=== PATIENT | female | born 1980 | race Caucasian/White ===

== ENCOUNTER 2017-10-08 12:04 | Emergency (ER) | payer MEDICAID, OTHER ==
[2017-10-08 12:19] VITALS: TEMP 97.9; O2SAT 100
[2017-10-08] MEDS ORDERED: Sodium Chloride 0.9% 1,000 ML IV ONE (12:41)
--- NOTE | 2017-10-08 12:45 | C.PDOC ---
History Of Present Illness 37 year old female presents to ED for evaluation of left sided abdominal pain and subjective fever for the last 4 days. She states pain started in left upper abdomen and is now located in left lower abdomen. Denies any associated fever, nausea, vomiting, diarrhea, constipation, dysuria, hematuria, urinary frequency , back pain, headache, or dizziness. Time Seen by Provider: 10/08/17 12:34 Chief Complaint (Nursing): Abdominal Pain History Per: Patient History/Exam Limitations: no limitations Onset/Duration Of Symptoms: Days (4) Current Symptoms Are (Timing): Still Present Location Of Pain/Discomfort: LUQ, LLQ Radiation Of Pain To:: None Quality Of Discomfort: "Pain" Associated Symptoms: denies: Loss Of Appetite, Back Pain, Chest Pain, Constipation, Urinary Symptoms Exacerbating Factors: None Alleviating Factors: None Last Bowel Movement: Today Recent travel outside of the [place]: No Additional History Per: Patient Abnormal Vaginal Bleeding: No Past Medical History Reviewed: Historical Data, Nursing Documentation, Vital Signs Vital Signs: Last Vital Signs Temp 97.9 F 10/08/17 12:14 Pulse 88 10/08/17 15:15 Resp 20 10/08/17 15:15 BP 128/78 10/08/17 15:15 Pulse Ox 100 10/08/17 15:15 - Medical History PMH: No Chronic Diseases Surgical History: (x1) Family History: States: Unknown Family Hx - Social History Hx Alcohol Use: No Hx Substance Use: No - Immunization History Hx Influenza Vaccination: No Review Of Systems Except As Marked, All Systems Reviewed And Found Negative. Constitutional: Negative for: Fever, Chills Gastrointestinal: Positive for: Abdominal Pain. Negative for: Nausea, Vomiting , Diarrhea, Constipation Genitourinary: Negative for: Dysuria, Frequency, Hematuria, Vaginal Discharge Musculoskeletal: Negative for: Back Pain Neurological: Negative for: Headache, Dizziness Physical Exam - Physical Exam Appears: Well, Non-toxic, No Acute Distress Skin: Normal Color, Warm, Dry Head: Atraumatic, Normacephalic Eye(s): bilateral: Normal Inspection, EOMI Oral Mucosa: Moist Neck: Normal ROM, Supple Chest: Symmetrical Cardiovascular: Rhythm Regular, No Murmur Respiratory: Normal Breath Sounds, No Rales, No Rhonchi, No Wheezing Gastrointestinal/Abdominal: Soft, Tenderness (mild LLQ tenderness with deep palpation), No Distention, No Guarding, No Rebound Back: No CVA Tenderness Extremity: Normal ROM, No Deformity Neurological/Psych: Oriented x3, Normal Speech Gait: Steady ED Course And Treatment - Laboratory Results Result Diagrams: 10/08/17 13:03 10/08/17 13:03 O2 Sat by Pulse Oximetry: 100 (RA) Pulse Ox Interpretation: Normal - CT Scan/US CT A/P Other Rad Studies (CT/US): Interpreted By Me, Read By Radiologist, Radiology Report Reviewed CT/US Interpretation: CT abdomen and pelvis. History: Left lower quadrant abdominal pain. Comparison: None available. Technique: Multiple contiguous axial images were performed through the abdomen and pelvis with the use of intravenous contrast. Subsequently, sagittal and coronal reformatted images were obtained. This CT exam was performed using one or more of the following dose reduction techniques: Automated exposure control, adjustment of the mA and/ or kV according to patient size, and/or use of iterative reconstruction technique. Findings: Large ovoid lobulated fatty lesion seen within the anterior midline subcutaneous soft tissues of the anterior abdomen on series 3, images 100-122. The lesion measures 3.2 x 2.1 x 5.8 centimeters. There is central fatty attenuation of the lesion with associated peripheral calcification and soft tissue thickening. This is of uncertain clinical etiology and may represent a complex lipomatous lesion. Alternatively, this may represent a prominent fat containing umbilical hernia; although, the mouth of the hernia is not well delineated. Additional etiologies not excluded. Clinical correlation. Atelectasis at the lung bases. No pleural or pericardial effusion. Liver is grossly preserved. Mild intrahepatic biliary ductal dilatation. Gallbladder is preserved. Spleen is preserved. Adrenal glands are preserved. Pancreas is preserved. Small hiatal hernia. Upper abdominal bowel is otherwise preserved. Right kidney: No calculi or hydronephrosis. Left Kidney: No calculi or hydronephrosis. Distended urinary bladder. Heterogeneous uterus and bilateral adnexa. Underdistended and or mildly thickened proximal sigmoid colon. Under distended and or mildly thickened rectum. Fecal retention in the colon. Appendix not well delineated, possibly partially imaged on series 3, images 106 through 112, grossly preserved. Few shotty para-aortic and inguinal lymph nodes. Few shotty mesenteric nodes. Sclerosis of the bilateral SI joints. Prominent posterior disc osteophyte complex at the T11-12 level. Impression: 1. Large ovoid lobulated fatty lesion seen within the anterior midline subcutaneous soft tissues of the anterior abdomen on series 3, images 100-122. The lesion measures 3.2 x 2.1 x 5.8 centimeters. There is central fatty attenuation of the lesion with associated peripheral calcification and soft tissue thickening. This is of uncertain clinical etiology and may represent a complex lipomatous lesion. Alternatively, this may represent a prominent fat containing umbilical hernia; although, the mouth of the hernia is not well delineated. Additional etiologies not excluded. Clinical correlation. 2. Underdistended and or mildly thickened proximal sigmoid colon. Under distended and or mildly thickened rectum. Fecal retention in the colon. 3. Appendix not well delineated, possibly partially imaged on series 3, images 106 through 112, grossly preserved. 4 Additional findings as above. Medical Decision Making Medical Decision Making: Impression: Abdominal pain Plan: * Blood work * Urinalysis * Pep Progress Labs reviewed with no acute findings. CT shows no acute abnormalities, findings more consistent with constipation. no evidence of diverticulitis. 1445 Patient re-evaluated and is resting comfortably on stretcher. She reports pain has improved and overall is feeling better. Abdomen remains soft and is nontender, she has no fever and stable vital signs. I provided copy of CT and lab results to patient. Patient given Rx and instructed to follow up with PCP/ clinic Disposition Counseled Patient/Family Regarding: Diagnosis, Need For Followup, Rx Given - Disposition Referrals: Zonia Plummer MD [Staff Provider] - Disposition: HOME/ ROUTINE Disposition Time: 14:52 Condition: GOOD Additional Instructions: Vaya a duggan mdico o la clnica en 2-5 bianchi sin falta, para mas evaluacin. Rhome los medicamentos rehan indicado. Volver a la wale de emergencia en cualquier momento si los sntomas persisten o empeoran. Prescriptions: Dicyclomine [Bentyl] 10 mg PO QID #20 cap Pantoprazole Sodium [Protonix] 20 mg PO DAILY #20 ect Instructions: Acute Abdomen (Belly Pain), Adult (DC) Forms: [employer] (Maltese), Work Excuse Print Language: UKRAINIAN - POA Present On Arrival: None - Clinical Impression Clinical Impression: LLQ abdominal pain - PA / ANALYSIS DIRECTOR / Resident Statement MD/DO has reviewed & agrees with the documentation as recorded. - Scribe Statement The provider has reviewed the documentation as recorded by the Scribe Melissa Linda All medical record entries made by the Scribe were at my direction and personally dictated by me. I have reviewed the chart and agree that the record accurately reflects my personal performance of the history, physical exam, medical decision making, and the department course for this patient. I have also personally directed, reviewed, and agree with the discharge instructions and disposition.
[2017-10-08 12:58] LABS: HCG,QUALITATIVE URINE NEGATIVE (NEGATIVE)
[2017-10-08 13:05] LABS: SQUAMOUS EPITHIAL 4 /hpf (0-5); URINE BILIRUBIN NEGATIVE (NEGATIVE); URINE BLOOD 3+ (NEGATIVE); URINE COLOR Yellow (YELLOW); URINE GLUCOSE (UA) NORMAL (Normal); URINE LEUKOCYTE ESTERASE NEG Leu/uL (Negative); URINE PROTEIN NEGATIVE (NEGATIVE); URINE UROBILINOGEN NORMAL mg/dL (0.2-1.0)
[2017-10-08 13:06] LABS: URINE CLARITY SLHAZY (Clear)
[2017-10-08 13:06] LABS: BASO % 1.1 % (0.0-2.0); EOS # 0.2 K/uL (0.0-0.7); LYMPH # 1.9 K/uL (1.0-4.3); MEAN CELL VOLUME 87.5 fL (81.0-99.0); MEAN CORPUSCULAR HEMOGLOBIN 29.1 pg (27.0-31.0); MEAN CORPUSCULAR HGB CONC 33.2 g/dL (33.0-37.0); MEAN PLATELET VOLUME 8.1 fL (7.2-11.7); MONO # 0.3 K/uL (0.0-0.8); MONO % 7.1 % (0.0-10.0); NEUT # 1.8 K/uL (1.8-7.0); NEUT % 41.8 % (50.0-75.0); NRBC % 0.1 % (0.0-2.0); RBC 4.13 Mil/uL (3.80-5.20); RED CELL DISTRIBUTION WIDTH 14.2 % (11.5-14.5); WHITE BLOOD COUNT 4.2 K/uL (4.8-10.8)
[2017-10-08] MEDS ORDERED: Sodium Chloride 0.9% 1,000 ML ONE (13:12)
[2017-10-08 13:19] LABS: ALB/GLOB RATIO 1.2 (1.0-2.1); ALBUMIN 4.3 g/dL (3.5-5.0); ALT/SGPT 16 U/L (9-52); AST/SGOT 27 U/L (14-36); BLOOD UREA NITROGEN 8 mg/dL (7-17); CALCIUM 8.8 mg/dl (8.6-10.4); GFR AFRICAN-AMERICAN > 60; GFR NON-AFRICAN AMERICAN > 60; LIPASE 42 U/L (23-300)
[2017-10-08] MEDS ORDERED: Iodixanol 320 MG/ML 100 ML BOTTLE IV ONE (13:49)
--- NOTE | 2017-10-08 14:44 | CT ---
CT abdomen and pelvis History: Left lower quadrant abdominal pain. Comparison: None available. Technique: Multiple contiguous axial images were performed through the abdomen and pelvis with the use of intravenous contrast. Subsequently, sagittal and coronal reformatted images were obtained. This CT exam was performed using one or more of the following dose reduction techniques: Automated exposure control, adjustment of the mA and/or kV according to patient size, and/or use of iterative reconstruction technique. Findings: Large ovoid lobulated fatty lesion seen within the anterior midline subcutaneous soft tissues of the anterior abdomen on series 3, images 100-122. The lesion measures 3.2 x 2.1 x 5.8 centimeters. There is central fatty attenuation of the lesion with associated peripheral calcification and soft tissue thickening. This is of uncertain clinical etiology and may represent a complex lipomatous lesion. Alternatively, this may represent a prominent fat containing umbilical hernia; although, the mouth of the hernia is not well delineated. Additional etiologies not excluded. Clinical correlation. Atelectasis at the lung bases. No pleural or pericardial effusion. Liver is grossly preserved. Mild intrahepatic biliary ductal dilatation. Gallbladder is preserved. Spleen is preserved. Adrenal glands are preserved. Pancreas is preserved. Small hiatal hernia. Upper abdominal bowel is otherwise preserved. Right kidney: No calculi or hydronephrosis. Left Kidney: No calculi or hydronephrosis. Distended urinary bladder. Heterogeneous uterus and bilateral adnexa. Underdistended and or mildly thickened proximal sigmoid colon. Under distended and or mildly thickened rectum. Fecal retention in the colon. Appendix not well delineated, possibly partially imaged on series 3, images 106 through 112, grossly preserved. Few shotty para-aortic and inguinal lymph nodes. Few shotty mesenteric nodes. Sclerosis of the bilateral SI joints. Prominent posterior disc osteophyte complex at the T11-12 level. Impression: 1. Large ovoid lobulated fatty lesion seen within the anterior midline subcutaneous soft tissues of the anterior abdomen on series 3, images 100-122. The lesion measures 3.2 x 2.1 x 5.8 centimeters. There is central fatty attenuation of the lesion with associated peripheral calcification and soft tissue thickening. This is of uncertain clinical etiology and may represent a complex lipomatous lesion. Alternatively, this may represent a prominent fat containing umbilical hernia; although, the mouth of the hernia is not well delineated. Additional etiologies not excluded. Clinical correlation. 2. Underdistended and or mildly thickened proximal sigmoid colon. Under distended and or mildly thickened rectum. Fecal retention in the colon. 3. Appendix not well delineated, possibly partially imaged on series 3, images 106 through 112, grossly preserved. 4 Additional findings as above.
[2017-10-08 15:38] VITALS: BP 128/78; PULSE 88; RESP 20
== END 2017-10-08 15:36 | disposition home or self-care (01) ==
LOC: C.ER 12:04
DX: R10.32 Left lower quadrant pain (principal)
CPT/HCPCS: 74177; 80053; 81001; 83690; 84703; 85025; 96361; 96374; 96375; 99285; J1885; J7040; Q9967

== ENCOUNTER 2018-01-20 06:44 | Emergency (ER) | payer MEDICAID ==
[2018-01-20 06:50] VITALS: BP 120/79; PULSE 61; RESP 16; TEMP 97.6; O2SAT 98
[2018-01-20 07:19] LABS: HCG,QUALITATIVE URINE NEGATIVE (NEGATIVE)
[2018-01-20 07:21] LABS: SQUAMOUS EPITHIAL 23 /hpf (0-5); URINE BACTERIA RARE (<OCC); URINE BILIRUBIN NEGATIVE (NEGATIVE); URINE BLOOD 1+ (NEGATIVE); URINE CLARITY Hazy (Clear); URINE COLOR Yellow (YELLOW); URINE GLUCOSE (UA) NORMAL (Normal); URINE LEUKOCYTE ESTERASE TRACE Leu/uL (Negative); URINE PROTEIN NEGATIVE (NEGATIVE); URINE UROBILINOGEN NORMAL mg/dL (0.2-1.0)
[2018-01-20 07:56] LABS: BASO % 0.9 % (0.0-2.0); EOS # 0.3 K/uL (0.0-0.7); EOS % 5.5 % (0.0-4.0); HEMOGLOBIN 12.2 g/dL (11.0-16.0); LYMPH # 2.2 K/uL (1.0-4.3); LYMPH % 43.7 % (20.0-40.0); MEAN CELL VOLUME 87.2 fL (81.0-99.0); MEAN CORPUSCULAR HEMOGLOBIN 28.6 pg (27.0-31.0); MEAN CORPUSCULAR HGB CONC 32.8 g/dL (33.0-37.0); MEAN PLATELET VOLUME 8.3 fL (7.2-11.7); MONO # 0.4 K/uL (0.0-0.8); MONO % 8.6 % (0.0-10.0); NEUT # 2.1 K/uL (1.8-7.0); NEUT % 41.3 % (50.0-75.0); NRBC % 0.1 % (0.0-2.0); RBC 4.27 Mil/uL (3.80-5.20); RED CELL DISTRIBUTION WIDTH 13.8 % (11.5-14.5); WHITE BLOOD COUNT 5.1 K/uL (4.8-10.8)
[2018-01-20 08:04] LABS: ALB/GLOB RATIO 1.4 (1.0-2.1); ALBUMIN 4.2 g/dL (3.5-5.0); ALT/SGPT 27 U/L (9-52); AST/SGOT 31 U/L (14-36); BLOOD UREA NITROGEN 14 mg/dL (7-17); CALCIUM 9.7 mg/dl (8.6-10.4); GFR AFRICAN-AMERICAN > 60; GFR NON-AFRICAN AMERICAN > 60; LIPASE 94 U/L (23-300)
--- NOTE | 2018-01-20 08:51 | C.PDOC ---
History Of Present Illness 37 y/o female presents to ED with c/o left sided abdominal pain since yesterday associated with nausea. Patient reports normal bowel movement yesterday but admits the stool was hard and she had to strain. Patient states she had same symptoms 3 months ago, had CT scan that was negative and symptoms resolved on their own. Patient admits to urinary frequency and denies vomiting, diarrhea, vaginal discharge, vaginal bleeding, dysuria or any other complaints at this time. Time Seen by Provider: 01/20/18 07:17 Chief Complaint (Nursing): Abdominal Pain History Per: Patient History/Exam Limitations: no limitations Onset/Duration Of Symptoms: Days Current Symptoms Are (Timing): Still Present Location Of Pain/Discomfort: LUQ, LLQ Radiation Of Pain To:: None Quality Of Discomfort: "Pain" Associated Symptoms: Urinary Symptoms Past Medical History Reviewed: Historical Data, Nursing Documentation, Vital Signs Vital Signs: Last Vital Signs Temp 97.6 F 01/20/18 06:47 Pulse 61 01/20/18 06:47 Resp 16 01/20/18 06:47 BP 120/79 01/20/18 06:47 Pulse Ox 98 01/20/18 10:39 - Medical History PMH: No Chronic Diseases Surgical History: (x1) Family History: States: No Known Family Hx - Social History Hx Alcohol Use: No Hx Substance Use: No - Immunization History Hx Influenza Vaccination: No Review Of Systems Constitutional: Negative for: Fever, Chills Gastrointestinal: Positive for: Nausea, Abdominal Pain. Negative for: Vomiting , Diarrhea, Constipation Genitourinary: Positive for: Frequency. Negative for: Dysuria, Vaginal Discharge, Vaginal Bleeding Musculoskeletal: Negative for: Back Pain Skin: Negative for: Rash Physical Exam - Physical Exam Appears: Non-toxic, No Acute Distress Skin: Warm, Dry, No Rash Head: Atraumatic, Normacephalic Eye(s): bilateral: Normal Inspection, EOMI Nose: Normal Oral Mucosa: Moist Neck: Normal ROM, Supple Chest: Symmetrical Cardiovascular: Rhythm Regular Respiratory: Normal Breath Sounds, No Accessory Muscle Use, No Rales, No Rhonchi , No Wheezing Gastrointestinal/Abdominal: Soft, Tenderness (LLQ), No Guarding, No Rebound Back: No CVA Tenderness Extremity: Normal ROM Neurological/Psych: Oriented x3, Normal Speech, Normal Cognition ED Course And Treatment - Laboratory Results Result Diagrams: 01/20/18 07:45 01/20/18 07:45 O2 Sat by Pulse Oximetry: 98 (RA) Pulse Ox Interpretation: Normal Progress Note: Toradol and Zofran administerd. On revaluation, patient feels better, notes pain is intermittent and has not had pain in 1 hour. Patient offered further evaluation with CT scan of abdomen, agreed upon no CT scan at this time needed since she had one 3 months ago and pain improved. Patient instructed to return to ED if symptoms worsen. Disposition - Disposition Disposition: HOME/ ROUTINE Disposition Time: 08:53 Condition: STABLE Additional Instructions: Follow up with your doctor in 1-2 days. Return to ER if symptoms persist or worsen. Prescriptions: Polyethylene Glycol 3350 [Miralax] 17 gm PO DAILY #85 gm Instructions: Acute Abdomen (Belly Pain), Adult (DC) Forms: [employer] ([employer] / [employer]) [employer] (Venezuelan) - Clinical Impression Clinical Impression: Abdominal pain, Constipation - PA / CHAIR LIFT OPERATOR / Resident Statement MD/DO has reviewed & agrees with the documentation as recorded. - Scribe Statement The provider has reviewed the documentation as recorded by the Scribcristina Patel All medical record entries made by the Heidiibcristina were at my direction and personally dictated by me. I have reviewed the chart and agree that the record accurately reflects my personal performance of the history, physical exam, medical decision making, and the department course for this patient. I have also personally directed, reviewed, and agree with the discharge instructions and disposition.
--- NOTE | 2018-01-20 08:51 | RAD ---
Date of service: 01/20/2018 PROCEDURE: Radiographs of the chest and abdomen (obstructive series) HISTORY: Abd Pain COMPARISON: No prior. TECHNIQUE: AP radiograph of the chest, with upright and supine radiographs of the abdomen. FINDINGS: CHEST: Lungs: Clear. Cardiovascular: Normal size heart. No pulmonary vascular congestion. Pleura: No pleural fluid. No pneumothorax. Other findings: None. ABDOMEN AND PELVIS: Bowel: Moderate retained feces. No evidence of bowel obstruction. Free air: None. Bones: Unremarkable. Other findings: None. IMPRESSION: Moderate retained feces. No evidence of bowel obstruction.
== END 2018-01-20 09:58 | disposition home or self-care (01) ==
LOC: C.ER 06:44
DX: K59.00 Constipation, unspecified (principal); R10.32 Left lower quadrant pain
CPT/HCPCS: 74022; 80053; 81001; 83690; 84703; 85025; 87086; 96374; 96375; 99285; J1885; J2405

== ENCOUNTER 2018-04-23 11:22 | Emergency (ER) | payer MEDICAID ==
[2018-04-23 11:35] VITALS: O2SAT 100
[2018-04-23 12:04] LABS: SQUAMOUS EPITHIAL 10 /hpf (0-5); URINE AMORPHOUS SEDIMENT RARE /ul (<OCC); URINE BACTERIA RARE (<OCC); URINE BILIRUBIN NEGATIVE (NEGATIVE); URINE BLOOD 1+ (NEGATIVE); URINE CLARITY Hazy (Clear); URINE COLOR Yellow (YELLOW); URINE GLUCOSE (UA) NORMAL (Normal); URINE LEUKOCYTE ESTERASE 2+ Leu/uL (Negative); URINE PROTEIN NEGATIVE (NEGATIVE); URINE UROBILINOGEN NORMAL mg/dL (0.2-1.0)
--- NOTE | 2018-04-23 12:29 | C.PDOC ---
Addendum entered and electronically signed by Padmini Zepeda PA 04/27/18 03:24: Disposition Counseled Patient/Family Regarding: Studies Performed, Diagnosis, Need For Followup Clinical Impression: Constipation Disposition: HOME/ ROUTINE Disposition Time: 13:40 Condition: GOOD Additional Instructions: Coma alimentos ricos en fibra, frutas y verduras. ciruelas y jugo de ciruela. Terra ms kya. [place] Miralax segn lo prescrito. Naga un seguimiento con duggan mdico en 2-3 bianchi. Regrese a la wale de emergencias por cualquier dolor peor. Vmitos u otras inquietudes. Eat high fiber foods, fruits and vegetables. prunes and prune juice. Drink more water. Take Miralax as prescribed. Follow up with your doctor in 2-3 days. Return to ER for any worse pain. vomiting or other concerns. Prescriptions: Polyethylene Glycol 3350 [Miralax] 17 gm PO DAILY #1 bottle Instructions: High Fiber Diet, Constipation, Adult (DC) Referrals: Zonia Plummer MD [Staff Provider] - Stand Alone Forms: Gen Discharge Inst Mozambican, [employer] (Mozambican) Print Language: MALAYSIAN Original Note: History Of Present Illness 38 year old female presents to the ED complaining of left lower quadrant pain for the past 5 days. Pain is nonradiating and described as achy. Associated symptoms include nausea. Denies any fever, chills, diarrhea, vomiting, dysuria, hematuria, or any other symptoms. Reports she has been taking Tylenol but pain persists. States she went to her medical claims specialist last month and exam was normal. pt sts last bm was fri and was hard. Time Seen by Provider: 04/23/18 11:43 Chief Complaint (Nursing): Abdominal Pain History Per: Patient History/Exam Limitations: no limitations Onset/Duration Of Symptoms: Days (5) Current Symptoms Are (Timing): Still Present Location Of Pain/Discomfort: LLQ Radiation Of Pain To:: None Quality Of Discomfort: Aching Associated Symptoms: Nausea. denies: Fever, Chills, Vomiting, Diarrhea, Urinary Symptoms Past Medical History Reviewed: Historical Data, Nursing Documentation, Vital Signs Vital Signs: Last Vital Signs Temp 98.3 F 04/23/18 11:32 Pulse 61 04/23/18 11:32 Resp 18 04/23/18 11:32 BP 131/79 04/23/18 11:32 Pulse Ox 100 04/23/18 11:32 - Medical History PMH: No Chronic Diseases Surgical History: (x1) Family History: States: No Known Family Hx - Social History Hx Alcohol Use: No Hx Substance Use: No - Immunization History Hx Influenza Vaccination: No Review Of Systems Constitutional: Negative for: Fever, Chills Gastrointestinal: Positive for: Nausea, Abdominal Pain. Negative for: Vomiting, Diarrhea Genitourinary: Negative for: Dysuria, Frequency, Hematuria Physical Exam - Physical Exam Appears: Non-toxic Skin: Warm, Dry Head: Normacephalic Eye(s): bilateral: Normal Inspection Neck: Supple Chest: No Tenderness Cardiovascular: Rhythm Regular Respiratory: Normal Breath Sounds, No Rales, No Rhonchi, No Wheezing Gastrointestinal/Abdominal: Soft, Tenderness (mild left lower quadrant tenderness), No Guarding, No Rebound Extremity: Normal ROM Neurological/Psych: Oriented x3, Normal Speech Gait: Steady ED Course And Treatment O2 Sat by Pulse Oximetry: 100 (RA) Pulse Ox Interpretation: Normal Medical Decision Making Medical Decision Making: Plan: - UA - XR ABD pt with llq pain. non toxic appearing. with recent dec bm and hard bm. axr c/w large amt stool.. will d/c with miralx, bhigh fiber diet. pmd f/u Disposition Counseled Patient/Family Regarding: Studies Performed, Diagnosis, Need For Followup, Rx Given - Disposition Referrals: Zonia Plummer MD [Staff Provider] - Disposition: HOME/ ROUTINE Disposition Time: 13:40 Condition: GOOD Additional Instructions: Coma alimentos ricos en fibra, frutas y verduras. ciruelas y jugo de ciruela. Terra ms kya. [place] Miralax segn lo prescrito. Naga un seguimiento con duggan mdico en 2-3 bianchi. Regrese a la wale de emergencias por cualquier dolor peor. Vmitos u otras inquietudes. Eat high fiber foods, fruits and vegetables. prunes and prune juice. Drink more water. Take Miralax as prescribed. Follow up with your doctor in 2-3 days. Return to ER for any worse pain. vomiting or other concerns. Prescriptions: Polyethylene Glycol 3350 [Miralax] 17 gm PO DAILY #1 bottle Instructions: Constipation, Adult (DC), High Fiber Diet Forms: Gen Discharge Inst Mozambican, [employer] (Mozambican) - Clinical Impression Clinical Impression: Constipation - PA / TIE CARRIER / Resident Statement MD/DO has reviewed & agrees with the documentation as recorded. - Scribe Statement The provider has reviewed the documentation as recorded by the Scribcristina Guevara All medical record entries made by the Brian were at my direction and personally dictated by me. I have reviewed the chart and agree that the record accurately reflects my personal performance of the history, physical exam, medical decision making, and the department course for this patient. I have also personally directed, reviewed, and agree with the discharge instructions and disposition.
[2018-04-23 13:57] VITALS: BP 123/78; PULSE 60; RESP 16; TEMP 98.2
--- NOTE | 2018-04-23 16:23 | RAD ---
Date of service: 04/23/2018 HISTORY: llq pain , no bm x 2 days COMPARISON: No prior. FINDINGS: BOWEL: Constipation without fecal impaction or obstruction. BONES: Normal. OTHER FINDINGS: None. IMPRESSION: No acute findings related to/accounting for the clinical presentation.
== END 2018-04-23 13:55 | disposition home or self-care (01) ==
LOC: C.ER 11:22
DX: K59.00 Constipation, unspecified (principal)